=== PATIENT | male | born 1980 | race African-American/Black ===

== ENCOUNTER 2017-06-12 18:43 | Emergency (ER) | payer OTHER, MEDICAID ==
[2017-06-12 19:22] VITALS: BP 115/73; PULSE 62; RESP 16; TEMP 98.4; O2SAT 98
[2017-06-12] MEDS ORDERED: TDAP ADULT 0.5 ML INJ (BOOSTRIX) IM ONE (20:06)
[2017-06-12] MEDS ORDERED: AMOXICILLIN/CLAVULANATE POT 875/125 MG TAB PO ONE (20:06)
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
== END 2017-06-12 20:36 | disposition home or self-care (01) ==
DX: S81.852A Open bite, left lower leg, initial encounter (principal); Z23 Encounter for immunization; W54.0XXA Bitten by dog, initial encounter; Y92.69 Other specified industrial and construction area as the place of occurrence of the external cause; Y99.0 Civilian activity done for income or pay; Y93.89 Activity, other specified; F17.200 Nicotine dependence, unspecified, uncomplicated

== ENCOUNTER 2017-07-08 11:23 | Emergency (ER) | payer MEDICAID, OTHER ==
[2017-07-08 11:28] VITALS: O2SAT 98
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
[2017-07-08] MEDS: traMADol 50 MG TAB PO ONE (11:50)
[2017-07-08] MEDS: IBUPROFEN 200 MG TAB PO ONE (11:50)
[2017-07-08 12:05] VITALS: BP 122/80; PULSE 81; RESP 16; TEMP 98.6
== END 2017-07-08 12:07 | disposition home or self-care (01) ==
DX: S60.912A Unspecified superficial injury of left wrist, initial encounter (principal); S60.414A Abrasion of right ring finger, initial encounter; S60.412A Abrasion of right middle finger, initial encounter; F17.200 Nicotine dependence, unspecified, uncomplicated; W23.0XXA Caught, crushed, jammed, or pinched between moving objects, initial encounter

== ENCOUNTER 2017-11-07 16:35 | Emergency (ER) | payer MEDICAID ==
[2017-11-07] MEDS ORDERED: TDAP ADULT 0.5 ML INJ (BOOSTRIX) IM ONE (16:40)
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
[2017-11-07] MEDS ORDERED: OXYCODONE/APAP 5/325 TAB PO ONE (16:50)
[2017-11-07] MEDS ORDERED: IBUPROFEN 600 MG TAB PO ONE ×2 (18:15→18:18)
[2017-11-07] MEDS ORDERED: KETAMINE 500 MG/10 ML VIAL NASAL ONE (18:35)
[2017-11-07 19:30] VITALS: BP 128/74; PULSE 69; RESP 16; TEMP 97.9; O2SAT 98
== END 2017-11-07 19:30 | disposition home or self-care (01) ==
LOC: EDUNIT#
PROC: 0HQFXZZ Repair Right Hand Skin, External Approach (ICD-10-PCS; principal; 2017-11-07)
DX: S61.411A Laceration without foreign body of right hand, initial encounter (principal); S61.212A Laceration without foreign body of right middle finger without damage to nail, initial encounter; X99.1XXA Assault by knife, initial encounter; Z23 Encounter for immunization; F17.200 Nicotine dependence, unspecified, uncomplicated
CPT/HCPCS: 96374; J0690